=== PATIENT | female | born 1960 | race Caucasian/White ===

== ENCOUNTER 2023-05-27 11:58 | Emergency (ER) | payer OTHER, SELFPAY ==
[2023-05-27 12:07] VITALS: BP 144/87; PULSE 59; RESP 18; TEMP 37.4; O2SAT 99
--- NOTE | 2023-05-27 12:40 | ED.GENADULT ---
HPI - General Adult General Chief complaint: Upper Respiratory Infection Stated complaint: Sore Throat Time Seen by Provider: 05/27/23 12:15 Source: patient, RN notes reviewed and old records reviewed Mode of arrival: ambulatory Limitations: no limitations History of Present Illness HPI narrative: 62-year-old female to [facility] for complaint of sore throat and right ear discomfort for 3 days. Patient endorses she took a COVID home yesterday that was negative. Patient states she visualized right patches right tonsil this morning and is concerned for strep. Patient denies headache, fever, nausea, vomiting. Patient has attempted to treat at home with Tylenol with no relief. Patient able to control secretions. Patient able to tolerate fluids by mouth. Patient in no acute distress. Related Data Home Medications Medication Instructions Recorded Confirmed alprazolam 0.5 mg tablet 0.5 mg PO TID 05/27/23 05/27/23 atorvastatin 20 mg tablet 20 mg PO DAILY 05/27/23 05/27/23 diclofenac sodium 75 mg 75 mg PO BID 05/27/23 05/27/23 tablet,delayed release furosemide 40 mg tablet 40 mg PO DAILY 05/27/23 05/27/23 pantoprazole 40 mg tablet,delayed 40 mg PO DAILY 05/27/23 05/27/23 release Allergies Allergy/AdvReac Type Severity Reaction Status Date / Time Sulfa (Sulfonamide Allergy Rash Verified 05/27/23 12:11 Antibiotics) Review of Systems Review of Systems: All systems reviewed & are unremarkable except as noted in HPI and below Constitutional: Constitutional: Reports as per HPI, Denies fever(s) and Denies headache(s) Eyes: Eyes: Reports no additional eye complaints ENT: Reports as per HPI, Reports otalgia ( right) and Reports sore throat Cardiovascular: Cardiovascular: Reports no additional cardiovascular complaints, Denies chest pain and Denies dyspnea Respiratory: Respiratory: Reports no additional respiratory complaints, Denies cough and Denies dyspnea Musculoskeletal: Musculoskeletal: Reports no additional musculoskeletal complaints Neurologic: Reports system reviewed and no additional complaints, except as documented Psychiatric: Psychiatric: Reports no additional psychiatric complaints PMFSH Comments At the time of my signature, I reviewed and agree with the nursing past medical, surgical, social, and family history. There is no relevant family history pertinent to the patient complaint. Exam Const: General: cooperative, healthy appearing, comfortable, no acute distress, alert and well nourished Nutritional Appearance: well nourished Orientation/consciousness: patient oriented x3 Limitations: no limitations HENMT: Head: normal to inspection Ears: external ears normal and TM abnormal with fluid behind the TM bilateral and diffuse Face/Nose/Sinus: Normal external nose present, Normal nares present, normal facial exam, No erythema and No edema Face and sinus: normal facial exam, no erythema and no edema Mouth: Yes Normal oral and palatal mucosa present Throat: abnormal tonsil on the right erythema, exudates and hypertrophy 2+ and posterior oropharynx abnormal erythema Eyes: General: appearance normal, both eyes and all related structures Neck: Neck: normal visual inspection, full ROM and no meningeal signs Lymphatic: no lymphedema noted Chest: Chest palpation & inspection: normal inspection of the chest Resp: Effort & Inspection: normal respiratory effort and able to speak in complete sentences Auscultation: clear to auscultation bilaterally Cardio: Jugular venous distension: no JVD Rate: regular rate Rhythm: regular rhythm Back/Spine/Pelvis: Cervical Spine: cervical ROM normal Skin: General skin exam: normal color, no rashes or lesions noted and turgor normal Neuro: General: patient oriented x3, gait normal, moves all extremities and no meningeal signs Speech: normal speech Gait exam (Neuro): Normal gait present Extrem: General: normal to inspection, full ROM and capillary refill n
== END 2023-05-27 13:21 | disposition home or self-care (01) ==
PROVIDERS: Emergency Provider Nurse Practitioner Family; PCP Internal Medicine
DX: J02.0 Streptococcal pharyngitis (principal); Z20.822 Contact with and (suspected) exposure to COVID-19
CPT/HCPCS: 87081; 87426; 87804; 87880; 99213; G0463

== ENCOUNTER 2023-11-17 07:23 | Day surgery (SDC) | payer OTHER, SELFPAY ==
[2023-09-29 14:53] VITALS: BMI 27.7
[2023-10-28 14:12] VITALS: BMI 26.6
[2023-11-17 07:55] VITALS: BP 114/69; PULSE 63; RESP 15; TEMP 37.4; O2SAT 100
[2023-11-17] MEDS: LACTATED RINGERS 1,000 ML 150 ML IV CONT (08:03)
--- NOTE | 2023-11-17 08:24 | PM.HPGS ---
History of Present Illness History of Present Illness Consent: Risks, benefits, and alternatives have been discussed and questions answered. Patient agrees to proceed with procedure. Chief complaint: History of Colon Polyps Narrative: Clara Carranza is a 62 year old female presents for screening colonoscopy. Patient reports that her current weight appetite and bowel movements are normal. She denies abdominal pain. Patient has had no bleeding. She a colon polyp perhaps 20 years ago. More recent colonoscopies every 5 years for the last 15 S have been normal. Current weight appetite and bowel movements are normal. Family history is noncontributory. Review of Systems Review of Systems: All systems reviewed & are unremarkable except as noted in HPI and below PMFSH Social History Social History Years smoked: 20 Smoking status: Former smoker Alcohol intake: current Drinks per week: 3 Substance use: never Substance use type: does not use Living arrangements: alone Spiritual care concerns: No Meds Home Medications and Allergies Home Medications Medication Instructions Recorded Confirmed Type alprazolam 0.5 mg tablet 0.5 mg PO TID PRN Anxiety 05/27/23 11/17/23 History atorvastatin 20 mg tablet 20 mg PO DAILY 05/27/23 11/17/23 History diclofenac sodium 75 mg 75 mg PO BID 05/27/23 11/17/23 History tablet,delayed release pantoprazole 40 mg tablet,delayed 40 mg PO DAILY 05/27/23 11/17/23 History release Fish Oil 1 tablet PO DAILY 10/28/23 11/17/23 History triamterene 37.5 1 tablet PO DAILY 10/28/23 11/17/23 History mg-hydrochlorothiazide 25 mg tablet zolpidem 6.25 mg tablet,extended 6.25 mg PO HS 10/28/23 11/17/23 History release,multiphase Allergies Allergy/AdvReac Type Severity Reaction Status Date / Time Sulfa (Sulfonamide Allergy Rash Verified 11/17/23 07:53 Antibiotics) Vital Signs Vital Signs - 24 hr 11/17/23 07:55 Temperature 99.3 F Pulse Rate 63 Respiratory Rate 15 Blood Pressure 114/69 Pulse Oximetry 100 Oxygen Delivery Room Air Exam Narrative: Physical exam reveals patient to be alert signs stable. HEENT exam is unremarkable. Patient is anicteric. Lungs are clear to auscultation and to percussion. Heart is without murmur or extra sounds. Abdomen bowel sounds are present soft nontender with no organomegaly. Digital external rectal exam normal. Assessment and Plan Assessment and plan (1) Screen for colon cancer: Code(s): Z12.11 - Encounter for screening for malignant neoplasm of colon Status: Acute Assessment and Plan: Patient presents for screening colonoscopy. She has a very distant history of colon polyps. Further recommendations may be given after endoscopy.
--- NOTE | 2023-11-17 08:57 | P.PNAN_ITS ---
Anes - Initial Pre Proc Eval Procedure: Operation Date: 11/17/23 09:00 Proposed Procedures p Diagnostic Colonoscopy - Dionicio Harvey MD Date/Time: 11/17/23 08:57 Surgeon: Dionicio Harvey MD Pre Op Diagnosis: History of Colon Polyps Patient Data Age: 62 Gender: F Height: 1.68 m Weight: 77.4 kg Last Vital Signs Temp 37.4 C 11/17/23 07:55 Pulse 63 11/17/23 07:55 Resp 15 11/17/23 07:55 BP 114/69 11/17/23 07:55 Pulse Ox 100 11/17/23 07:55 O2 Del Method Room Air 11/17/23 07:55 Allergies Allergy/AdvReac Type Severity Reaction Status Date / Time Sulfa (Sulfonamide Allergy Rash Verified 11/17/23 07:53 Antibiotics) Home Medications Medication Instructions Recorded Confirmed Type alprazolam 0.5 mg tablet 0.5 mg PO TID PRN Anxiety 05/27/23 11/17/23 History atorvastatin 20 mg tablet 20 mg PO DAILY 05/27/23 11/17/23 History diclofenac sodium 75 mg 75 mg PO BID 05/27/23 11/17/23 History tablet,delayed release pantoprazole 40 mg tablet,delayed 40 mg PO DAILY 05/27/23 11/17/23 History release Fish Oil 1 tablet PO DAILY 10/28/23 11/17/23 History triamterene 37.5 1 tablet PO DAILY 10/28/23 11/17/23 History mg-hydrochlorothiazide 25 mg tablet zolpidem 6.25 mg tablet,extended 6.25 mg PO HS 10/28/23 11/17/23 History release,multiphase Patient hx anesthesia problems: none Family hx anesthesia problems: none Results Review: All pre-operative results and documents have been reviewed as part of the pre- operative evaluation. [facility] Social History Social History Years smoked: 20 Smoking status: Former smoker Alcohol intake: current Drinks per week: 3 Substance use: never Substance use type: does not use Living arrangements: alone Spiritual care concerns: No Anes - Eval Final PreProcedure Day of Procedure 11/17/23 08:57 Patient weight: overweight Heart: regular rate and rhythm Lungs: clear to auscultation Airway: Mallampati scale class II Neurological: alert and oriented Last oral intake: >/= 8 hours ASA classification: II Emergent: no Anesthetic plan: proceed Anesthesia type and monitoring: general GIVS and standard monitoring Results Review: All pre-operative results and documents have been reviewed as part of the pre- operative evaluation. Informed Consent: The patient's anesthetic plan and its attendant risks and benefits were discussed with the patient/family/POA. Questions were solicited and answers provided to the satisfaction of the patient/family/POA.
[2023-11-17 09:20] VITALS: BP 99/70; PULSE 60; RESP 14; O2SAT 100
[2023-11-17 09:30] VITALS: BP 109/66; PULSE 53; RESP 15; O2SAT 100
[2023-11-17 09:40] VITALS: BP 128/80; PULSE 62; RESP 14; O2SAT 100
--- NOTE | 2023-11-17 09:55 | WPDANESPN ---
Anes - Prog Note Post-Op Date/Time: 11/17/23 09:55 Cardiovascular status: normal Respiratory status: normal Airway patency: baseline Mental status: baseline Post-Op hydration status: normal Vital Signs: Last Vital Signs Temp 37.4 C 11/17/23 07:55 Pulse 62 11/17/23 09:40 Resp 14 11/17/23 09:40 BP 128/80 11/17/23 09:40 Pulse Ox 100 11/17/23 09:40 O2 Del Method Room Air 11/17/23 09:40 Pain Score (VAS): 0 I/O: Intake & Output 11/16/23 11/17/23 11/17/23 23:59 07:59 15:59 Intake Total 500 Balance 500 Patient Feedback: Patient satisfied with anesthetic care.
== END 2023-11-17 09:55 | disposition home or self-care (01) ==
PROVIDERS: PCP Internal Medicine; Visit Provider Internal Medicine Gastroenterology
PROC: 0DJD8ZZ Inspection of Lower Intestinal Tract, Via Natural or Artificial Opening Endoscopic (ICD-10-PCS; CPT 45378; principal; 2023-11-17 09:00)
DX: Z12.11 Encounter for screening for malignant neoplasm of colon (principal); Z86.010 Personal history of colon polyps; K64.8 Other hemorrhoids
CPT/HCPCS: 45378